=== PATIENT | female | born 1995 | race Caucasian/White ===

== ENCOUNTER 2022-03-03 12:51 | Outpatient (REF) | payer OTHER, SELFPAY ==
--- NOTE | ~2022-03-03 | CT_ITS ---
EXAMINATION: CT HEAD WITHOUT CONTRAST CLINICAL INFORMATION: Migraines. COMPARISON: None. TECHNIQUE: Contiguous axial imaging was performed from the skullbase to vertex without intravenous administration of contrast. This CT examination was performed using dose optimization techniques as appropriate, variously including the following: *Automated exposure control *Adjustment of mA and/or kV according to patient size (this includes techniques or standardized protocols for targeted exams where dose is matched to indication/reason for exam; i.e. extremities or head) *Use of iterative reconstruction technique DLP: 665 mGy-cm. FINDINGS: There is no evidence of acute intracranial hemorrhage or territorial infarction. No abnormal mass effect or midline shift is seen. Salazar to white matter differentiation is well preserved. No extra-axial fluid collections are identified. The ventricles are normal in size. There is no abnormal attenuation within the brain parenchyma. The osseous structures and soft tissues are normal. The mastoid air cells and visualized portions of the paranasal sinuses are well aerated. CT/CT head/brain wo IV con IMPRESSION: No acute intracranial pathology. Normal CT scan of the head.
== END 2022-03-03 12:52 | disposition home or self-care (01) ==
LOC: HO.CT 12:51
PROVIDERS: Visit Provider Psychiatry & Neurology Neurology
DX: G43.909 Migraine, unspecified, not intractable, without status migrainosus (principal)
CPT/HCPCS: 70450

== ENCOUNTER 2022-08-09 16:27 | Emergency (ER) | payer OTHER, SELFPAY ==
--- NOTE | ~2022-08-09 | US_ITS ---
EXAMINATION: Ultrasound OB limited. CLINICAL INDICATION: 16 weeks cannot feel baby move. Vomiting. COMPARISON: None. TECHNIQUE: Transabdominal imaging of pelvis is performed. FINDINGS: There is a single live intrauterine fetus in the cephalic position with a heart rate of 1 53 bpm an good movement. The placenta is posterior grade 1/2. The femoral length is 2.16 cm corresponding to 16 weeks 4 days. The left ovary measures 1.3 x 2.0 x 1.3 cm and appears unremarkable. The right ovary measures 1.6 x 0.8 x 1.1 cm. There is no free fluid in cul-de-sac. US/US OB limited IMPRESSION: Single live intrauterine fetus in cephalic position with normal movement and a heart rate of 1 52 bpm. Limited dating reveals ultrasound gestational age of 16 weeks 4 days.
[2022-08-09 16:34] VITALS: BP 115/76; PULSE 100; RESP 18; TEMP 36.8; O2SAT 98; BMI 30.2
--- NOTE | 2022-08-09 16:36 | ED_ITS ---
HPI - General Adult General Chief complaint: General Medical Stated complaint: vomiting, sore throat Time Seen by Provider: 08/09/22 17:54 Related Data Previous Rx's Medication Instructions Recorded nitrofurantoin 100 mg PO Q12H 7 days #14 caps 08/09/22 monohydrate/macrocrystals 100 mg capsule (Macrobid) Allergies Allergy/AdvReac Type Severity Reaction Status Date / Time No Known Allergies Allergy Unverified 01/31/20 19:00 [No Known Allergies*] [facility] Social History Social History Alcohol intake: never Physical Exam ED Vital Signs: Vital Signs - 24 hr 08/09/22 16:34 Temperature 98.3 F Pulse Rate 100 Respiratory Rate 18 Blood Pressure 115/76 Pulse Oximetry 98 Oxygen Delivery Method Room Air BMI result Body Mass Index 30.2 Course Course Course Narrative: RmE: 16 weeks patient presents to the ED for sore throat, vomitting, couging, fatigue, chills, and low grade fever. patient denies any abdominal pain, vaginal bleding. Patient states she has not felt her baby move in a couple of days. Labs/SARS/US OBGYN Medications Administered Discontinued Medications Generic Name Dose Route Start Last Admin Trade Name Freq PRN Reason Stop Dose Admin Sodium Chloride 1,000 mls @ 999 mls/hr 08/09/22 18:45 08/09/22 20:22 Ns IV 08/09/22 19:45 Infused .Q1H1M VICKI Infusion Sodium Chloride 1,000 mls @ 999 mls/hr 08/09/22 18:45 08/09/22 21:48 Ns IV 08/09/22 19:45 Infused .Q1H1M VICKI Infusion Ceftriaxone Sodium 1 gm/ 50 mls @ 100 mls/hr 08/09/22 21:17 08/09/22 21:56 Sodium Chloride IV 08/09/22 21:46 Infused ONCE ONE Infusion Ondansetron HCl 4 mg 08/09/22 18:41 08/09/22 19:27 Ondansetron Hcl 4 Mg/2 Ml Vial IVPUSH 08/09/22 18:42 4 mg ONCE ONE Administration Medical Decision Making Lab Data 08/09/22 16:55 08/09/22 16:55 Labs: Lab Results 08/09/22 08/09/2208/09/23 Range/Units 16:55 16:55 16:55 WBC 12.3 H (4.8-10.8) X10*3/uL RBC 4.45 (4.20-5.50) X10*6/uL Hgb 12.6 (12.0-16.0) g/dl Hct 37.5 (37.0-47.0) % MCV 84.3 (80.0-98.0) fL MCH 28.3 (27.0-33.0) pg MCHC 33.6 (31.0-35.0) g/dl RDW 13.4 (11.0-16.0) % Plt Count 265 (160-400) X10*3/uL MPV 10.1 (9.4-12.3) fL Immature Gran % (Auto) 0.3 (0.0-0.4) % Neut % (Auto) 81.1 H (45-73) % Lymph % (Auto) 13.3 L (20-40) % [place] % (Auto) 4.3 (2-11) % Eos % (Auto) 0.8 (0-4) % Baso % (Auto) 0.2 (0-2) % Lymph # (Auto) 1.6 (1.2-4.9) X10*3/uL [place] # (Auto) 0.5 (0.1-1.2) X10*3/uL Eos # (Auto) 0.1 (0.0-0.4) X10*3/uL Baso # (Auto) 0.0 (0.0-0.2) X10*3/uL Abs Immat Gran (auto) 0.04 H (0.00-0.03) X10*3/uL Absolute Neuts (auto) 9.9 H (2.0-8.3) x10*3/uL Absolute Nucleated RBC 0.000 (0.0-0.012) X10*3/uL Nucleated RBC % (auto) 0.0 (0.0-0.2) /100WBC PT 12.6 (10.0-13.1) SEC INR 1.1 (0.9-1.1) APTT 28.8 (26.0-36.4) SEC Sodium (135-145) mmol/L Potassium (3.3-5.1) mmol/L Chloride (96-108) mmol/L Carbon Dioxide (22-29) mmol/L Anion Gap (12-20) BUN (9-16) mg/dL Creatinine (0.5-1.4) mg/dL Estim Creat Clear Calc Estimated GFR Random Glucose (60-115) mg/dL Calcium (8.4-10.2) mg/dL Total Bilirubin (0.0-1.0) mg/dL AST (5-31) U/L ALT (0-31) U/L Alkaline Phosphatase (39-117) U/L Total Protein (6.5-8.0) g/dL Albumin (3.5-5.0) g/dL Beta HCG, Quant mIU/mL Urine Color Urine Appearance Urine pH (5.0-9.0) Ur Specific [place] (1.005-1.025) Urine Protein (Neg-Trace) mg/dL Urine Glucose (UA) (Negative) mg/dL Urine Ketones (Negative) mg/dL Urine Blood (Negative) Urine Nitrite (Negative) Ur Leukocyte Esterase (Negative) Urine RBC (0-2) /HPF Urine WBC (0-5) /HPF Ur Squamous Epith Cells (0-2) /HPF Urine Bacteria (None Seen) Hyaline Casts (0-2) /LPF Influenza Type A (PCR) NEGATIVE (Negative) Influenza Type B (PCR) NEGATIVE (Negative) RSV RNA Qual (PCR) NEGATIVE (Negative) SARS-CoV-2 RNA (RT-PCR) NEGATIVE (Negative) S. pyogenes GrpA JANET (Negative) Blood Type 08/09/22 08/09/22 08/09/22 Range/Units 16:55 16:55 16:56 WBC (4.8-10.8) X10*3/uL RBC (4.20-5.50) X10*6/uL Hgb (12.0-16.0) g/dl Hct (37.0-47.0) % MCV (80.0-98.0) fL MCH (27.0-33.0) pg MCHC (31.0-35.0) g/dl RDW (11.0-16.0) % Plt Count (160-400) X10*3/uL MPV (9.4-12.3) fL Immature Gran % (Auto) (0.0-0.4) % Neut % (Auto) (45-73) % Lymph % (Auto) (20-40) % [place] % (Auto) (2-11) % Eos % (Auto) (0-4) % Baso % (Auto) (0-2) % Lymph # (Auto) (1.2-4.9) X10*3/uL [place] # (Auto) (0.1-1.2) X10*3/uL Eos # (Auto) (0.0-0.4) X10*3/uL Baso # (Auto) (0.0-0.2) X10*3/uL Abs Immat Gran (auto) (0.00-0.03) X10*3/uL Absolute Neuts (auto) (2.0-8.3) x10*3/uL Absolute Nucleated RBC (0.0-0.012) X10*3/uL Nucleated RBC % (auto) (0.0-0.2) /100WBC PT (10.0-13.1) SEC INR (0.9-1.1) APTT (26.0-36.4) SEC Sodium 137 (135-145) mmol/L Potassium 3.4 (3.3-5.1) mmol/L Chloride 105 (96-108) mmol/L Carbon Dioxide 25 (22-29) mmol/L Anion Gap 10 L (12-20) BUN 4 L (9-16) mg/dL Creatinine 0.60 (0.5-1.4) mg/dL Estim Creat Clear Calc 118.1 Estimated GFR > 60 Random Glucose 106 (60-115) mg/dL Calcium 8.6 (8.4-10.2) mg/dL Total Bilirubin 0.2 (0.0-1.0) mg/dL AST 11 (5-31) U/L ALT 9 (0-31) U/L Alkaline Phosphatase 62 (39-117) U/L Total Protein 6.1 L (6.5-8.0) g/dL Albumin 3.5 (3.5-5.0) g/dL Beta HCG, Quant 04554 mIU/mL Urine Color Urine Appearance Urine pH (5.0-9.0) Ur Specific [place] (1.005-1.025) Urine Protein (Neg-Trace) mg/dL Urine Glucose (UA) (Negative) mg/dL Urine Ketones (Negative) mg/dL Urine Blood (Negative) Urine Nitrite (Negative) Ur Leukocyte Esterase (Negative) Urine RBC (0-2) /HPF Urine WBC (0-5) /HPF Ur Squamous Epith Cells (0-2) /HPF Urine Bacteria (None Seen) Hyaline Casts (0-2) /LPF Influenza Type A (PCR) (Negative) Influenza Type B (PCR) (Negative) RSV RNA Qual (PCR) (Negative) SARS-CoV-2 RNA (RT-PCR) (Negative) S. pyogenes GrpA JANET Negative (Negative) Blood Type A Positive 08/09/22 Range/Units 19:15 WBC (4.8-10.8) X10*3/uL RBC (4.20-5.50) X10*6/uL Hgb (12.0-16.0) g/dl Hct (37.0-47.0) % MCV (80.0-98.0) fL MCH (27.0-33.0) pg MCHC (31.0-35.0) g/dl RDW (11.0-16.0) % Plt Count (160-400) X10*3/uL MPV (9.4-12.3) fL Immature Gran % (Auto) (0.0-0.4) % Neut % (Auto) (45-73) % Lymph % (Auto) (20-40) % [place] % (Auto) (2-11) % Eos % (Auto) (0-4) % Baso % (Auto) (0-2) % Lymph # (Auto) (1.2-4.9) X10*3/uL [place] # (Auto) (0.1-1.2) X10*3/uL Eos # (Auto) (0.0-0.4) X10*3/uL Baso # (Auto) (0.0-0.2) X10*3/uL Abs Immat Gran (auto) (0.00-0.03) X10*3/uL Absolute Neuts (auto) (2.0-8.3) x10*3/uL Absolute Nucleated RBC (0.0-0.012) X10*3/uL Nucleated RBC % (auto) (0.0-0.2) /100WBC PT (10.0-13.1) SEC INR (0.9-1.1) APTT (26.0-36.4) SEC Sodium (135-145) mmol/L Potassium (3.3-5.1) mmol/L Chloride (96-108) mmol/L Carbon Dioxide (22-29) mmol/L Anion Gap (12-20) BUN (9-16) mg/dL Creatinine (0.5-1.4) mg/dL Estim Creat Clear Calc Estimated GFR Random Glucose (60-115) mg/dL Calcium (8.4-10.2) mg/dL Total Bilirubin (0.0-1.0) mg/dL AST (5-31) U/L ALT (0-31) U/L Alkaline Phosphatase (39-117) U/L Total Protein (6.5-8.0) g/dL Albumin (3.5-5.0) g/dL Beta HCG, Quant mIU/mL Urine Color Yellow Urine Appearance Clear Urine pH 6.5 (5.0-9.0) Ur Specific [place] 1.015 (1.005-1.025) Urine Protein Trace (Neg-Trace) mg/dL Urine Glucose (UA) Negative (Negative) mg/dL Urine Ketones 80 (Negative) mg/dL Urine Blood Negative (Negative) Urine Nitrite Negative (Negative) Ur Leukocyte Esterase Moderate (2+) H (Negative) Urine RBC 0-2 (0-2) /HPF Urine WBC 21-50 H (0-5) /HPF Ur Squamous Epith Cells 6-10 (0-2) /HPF Urine Bacteria 1+ (None Seen) Hyaline Casts 0-2 (0-2) /LPF Influenza Type A (PCR) (Negative) Influenza Type B (PCR) (Negative) RSV RNA Qual (PCR) (Negative) SARS-CoV-2 RNA (RT-PCR) (Negative) S. pyogenes GrpA JANET (Negative) Blood Type Discharge Plan Discharge Clinical Impression: Nausea & vomiting, , Urinary tract infection Patient Disposition: Home, Self-Care Instructions: (ED), Acute Nausea and Vomiting (ED), Urinary Tract Infection in (ED) Prescriptions: New nitrofurantoin monohyd/m-cryst [Macrobid] 100 mg capsule 100 mg PO Q12H 7 Days Qty: 14 0RF Rx Instructions: must administer with a meal/food Referrals: Areli Farias MD [Primary Care Provider] - (Please follow-up with your OBGYN in 2-3 days. Finish all your antibiotics) Interventions: ED Discharge Assessment Last Done: 08/09/22 21:55 Discharge Date/Time: 08/09/22 21:55
--- OUTSIDE RECORDS SUMMARY | 2022-08-09 17:00 | XMS_ITS | Continuity of Care Document ---
Author Name Unknown Organization [facility] al Address [address] [place] [address]- Care Team Providers Care Environmental Services Associate Name Role Phone Not on Staff, PCP Primary Care Physician Unavail able Encounter [facility] Date(s): 10/10/19 - 10/11/[address] [address]- [facility] Discharge Disposition: A-D/C Home Attending Physician: Sohail Zamora DO Admitting Physician: Sohail Zamora DO Referring Physician: Not on Staff, Referring MD Allergies, Adverse Reactions, Alerts Substance Reaction Severity Status NKA Active Medications Lexapro 10 mg oral tablet 1 tablet = 10 mg, By Mouth, Daily, # 30 tablet, 0 Refills, Maintenance, 09/04/19 11:17:00 EDT, Tablet Start Date: 09/04/19 Status: Ordered RisperDAL 1 mg oral tablet 1 mg, 1, tablet, By Mouth, Daily at bedtime, # 30 tablet, Refills 0, Maintenance, 09/04/19 11:17:00EDT Start Date: 09/04/19 Status: Ordered risperiDONE 0.25 mg oral tablet 0.25 mg, 1, tablet, By Mouth, 2 times a day, # 180 tablet, Refills 0, Maintenance, 09/04/19 11:17:00 EDT Start Date: 09/04/19 Status: Ordered Vital Signs Most recent to oldest [Reference Range]: 1 2 3 Height 150 cm (10/11/19 11:46 AM) 150 cm (10/10/19 10:57 PM) 150 cm (10/10/19 10:56 PM) Weight 71.3 kg (10/11/19 11:46 AM) 71.3 kg (10/10/19 10:57 PM) 71.3 kg (10/10/19 10:56 PM) Oxygen Saturation [94-100 %] 100 % (10/11/19 10:14 AM) 99 % (10/10/19 10:38 PM) Pulse Rate [55-90 bpm] 95 bpm *H* (10/11/19 10:14 AM) 81 bpm (10/10/19 10:38 PM) Body Mass Index [18.5-24.99] 31.69 *>HHI* (10/10/19 10:56 PM) Blood Pressure [90-138/55-84 mm Hg] 117/66mm Hg (10/11/19 10:14 AM) 120/74mm Hg (10/10/19 10:38 PM) Respiratory Rate [16-30 br/min] 16 br/min (10/11/19 10:14 AM) 16 br/min (10/10/19 10:38 PM) Temperature [96.8-100.4 DegF] 98.2 DegF (10/10/19 10:38 PM) Mode of Delivery (Oxygen) Room air (10/11/19 10:14 AM) Blood pressure sites Arm, left (10/11/19 10:14 AM) Arm, left (10/10/19 10:38 PM) Temperature Route Tympanic (10/10/19 10:38 PM) Dry Weight 71.3 kg (10/11/19 11:46 AM) 71.3 kg (10/10/19 10:57 PM) Social History Social History Type Response Smoking Status Never (less than 100 in lifetime) entered on: 09/04/19 Sex
--- OUTSIDE RECORDS SUMMARY | 2022-08-09 17:00 | XMS_ITS | Continuity of Care Document ---
Author Name Unknown Organization [facility] Address [address] [place] [address]- Care Team Providers Care Flour Broker Name Role Phone Not on Staff, PCP Primary Care Physician Unavail able Encounter [facility] Date(s): 09/04/19 - 09/04/[address] [address]- [facility] Discharge Disposition: A-D/C Home Attending Physician: Sohail [...] tablet 1 mg, 1, tablet, By Mouth, Daily, # 30 tablet, Refills 0, Maintenance, 09/04/19 11:17:00 EDT Start Date: 09/04/19 Status: Ordered risperiDONE 0.25 mg oral tablet 0.25 mg, 1, tablet, By Mouth, 2 times a day, # 180 tablet, Refills 0, Maintenance, 09/04/19 11:17:00 EDT Start Date: 09/04/19 Status: Ordered Vital Signs Most recent to oldest [Reference Range]: 1 Height 150 cm (09/04/19 11:16 AM) Weight 69.2 kg (09/04/19 11:16 AM) Oxygen Saturation [94-100 %] 100 % (09/04/19 11:16 AM) Pulse Rate [55-90 bpm] 79 bpm (09/04/19 11:16 AM) Blood Pressure [90-138/55-84 mm Hg] 127/ 78mm Hg (09/04/19 11:16 AM) Respiratory Rate [16-30 br/min] 16 br/mi n (09/04/19 11:16 AM) Temperature [96.8-100.4 DegF] 98.0 DegF (09/04/19 11:16 AM) Mode of Delivery (Oxygen) Room air (09/04/19 11:16 AM) Dry Weight 69.2 kg (09/04/19 11:16 AM) Weight Obtained Via Standing scale (09/04/19 11:16 AM) Dry Weight Obtained Via Standing scale (09/04/19 11:16 AM) Social History Social History Type Response Smoking Status Never (less than 100 in lifetime) entered on: 09/04/19 Sex
[2022-08-09 17:04] LABS: MANUAL DIFF FLAG NO
[2022-08-09 17:11] LABS: Basophils Percent Auto 0.2 % (0-2); Eosinophils Absolute Auto 0.1 X10*3/uL (0.0-0.4); Eosinophils Percent Auto 0.8 % (0-4); Hematocrit 37.5 % (37.0-47.0); Hemoglobin 12.6 g/dl (12.0-16.0); Imm Gran Abs Auto 0.04 X10*3/uL (0.00-0.03); Imm Gran Pct Auto 0.3 % (0.0-0.4); Lymphocytes Absolute Auto 1.6 X10*3/uL (1.2-4.9); Lymphocytes Percent Auto 13.3 % (20-40); Mean Corpuscular HGB Conc 33.6 g/dl (31.0-35.0); Mean Corpuscular Hemoglobin 28.3 pg (27.0-33.0); Mean Corpuscular Volume 84.3 fL (80.0-98.0); Mean Platelet Volume 10.1 fL (9.4-12.3); Monocytes Absolute Auto 0.5 X10*3/uL (0.1-1.2); Monocytes Percent Auto 4.3 % (2-11); Neutrophils Absolute Auto 9.9 x10*3/uL (2.0-8.3); Neutrophils Percent Auto 81.1 % (45-73); Platelet Count 265 X10*3/uL (160-400); Red Blood Count 4.45 X10*6/uL (4.20-5.50); Red Cell Distribution Width 13.4 % (11.0-16.0); White Blood Count 12.3 X10*3/uL (4.8-10.8)
[2022-08-09 17:16] LABS: INTERNATIONAL NORM RATIO 1.1 (0.9-1.1); Prothrombin Time 12.6 SEC (10.0-13.1)
[2022-08-09 17:18] LABS: Partial Thromboplastin Time 28.8 SEC (26.0-36.4)
[2022-08-09 17:28] LABS: IDNOW Serial# 08D9AD1C; Strep A Nucleic Acid Negative (Negative)
[2022-08-09 17:41] LABS: Alanine Aminotransferase 9 U/L (0-31); Albumin Level 3.5 g/dL (3.5-5.0); Alkaline Phosphatase 62 U/L (39-117); Anion Gap 10 (12-20); Aspartate Amino Transferase 11 U/L (5-31); Bilirubin Total 0.2 mg/dL (0.0-1.0); Blood Urea Nitrogen 4 mg/dL (9-16); Calcium 8.6 mg/dL (8.4-10.2); Carbon Dioxide 25 mmol/L (22-29); Chloride 105 mmol/L (96-108); Creatinine Clr Calc Pharmacy 118.1; Estimated Glomerular Filt Rate > 60; Glucose Random 106 mg/dL (60-115); Potassium 3.4 mmol/L (3.3-5.1); Sodium 137 mmol/L (135-145); Total Protein 6.1 g/dL (6.5-8.0)
[2022-08-09 17:52] LABS: Influenza A PCR NEGATIVE (Negative); Influenza B PCR NEGATIVE (Negative); Resp Syncy Virus RNA Qual PCR NEGATIVE (Negative); SARS COV2 PCR INHOUSE NEGATIVE (Negative)
--- NOTE | 2022-08-09 18:44 | ED.URI ---
HPI - URI/Sore Throat General Chief Complaint: General Medical Stated Complaint: vomiting, sore throat Time Seen by Provider: 08/09/22 17:54 History of Present Illness HPI Narrative: Patient is a 27-year-old female positive coughing congestion upper respiratory symptoms. Positive sore throat. Patient is approximately 16 weeks . Had a previous ultrasound done at [facility]. It shows an intrauterine . There is no abdominal pain. There is no vaginal discharge. Patient feels very weak and tired was unable to keep down fluids since presents emergency department for further evaluation. Related Data Previous Rx's Medication Instructions Recorded nitrofurantoin 100 mg PO Q12H 7 days #14 caps 08/09/22 monohydrate/macrocrystals 100 mg capsule (Macrobid) Allergies Allergy/AdvReac Type Severity Reaction Status Date / Time No Known Allergies Allergy Unverified 01/31/20 19:00 [No Known Allergies*] Review of Systems Review of Systems: Positive nausea vomiting positive decreased p.o. intake Yes all other systems are reviewed and are negative [facility] Past Medical History Attestation statement: The following information was validated with the patient. Social History Social History Alcohol intake: never Smoked in Last 30 Days: No Use of substances other than those prescribed or required for medical reasons: No Advance Directives: No Advance Directives Information Provided: No Patient : Yes Physical Exam Vital Signs: Vital Signs: Last Vital Signs Temp 98.1 F 08/09/22 18:55 Pulse 92 08/09/22 18:55 Resp 18 08/09/22 18:55 BP 108/59 L 08/09/22 18:55 Pulse Ox 99 08/09/22 18:55 O2 Del Method Room Air 08/09/22 18:55 BMI result Body Mass Index 30.2 Appearance: Alert. Oriented X3. No acute distress. Eyes: Pupils equal, round and reactive to light. ENT: Pharynx normal. Neck: Normal inspection. Neck supple. No lymph nodes noted. No crepitus CVS: Normal heart rate and rhythm. Pulses normal. Normal S1 and S2 Respiratory: No respiratory distress. Breath sounds normal. No Wheezing. No rales Abdomen: Gravid uterus nontender. No rigidity. No distention. good BS x4 Skin: Skin warm and dry. Normal skin color. Normal skin turgor. Extremities: No lower extremity edema. Neurovascular intact to all extremities. No Lacerations. No Rash Neuro: Oriented X 3. No motor deficit. No sensory deficit. Moving all extermities. No slurred speech Medications Administered Generic Name Dose Route Start Last Admin Trade Name Freq PRN Reason Stop Dose Admin Ceftriaxone Sodium 1 gm/ 50 mls @ 100 mls/hr 08/09/22 21:17 08/09/22 21:25 Sodium Chloride IV 08/09/22 21:46 100 mls/hr ONCE ONE Administration Discontinued Medications Generic Name Dose Route Start Last Admin Trade Name Freq PRN Reason Stop Dose Admin Sodium Chloride 1,000 mls @ 999 mls/hr 08/09/22 18:45 08/09/22 20:22 Ns IV 08/09/22 19:45 Infused .Q1H1M VICKI Infusion Sodium Chloride 1,000 mls @ 999 mls/hr 08/09/22 18:45 08/09/22 20:22 Ns IV 08/09/22 19:45 999 mls/hr .Q1H1M VICKI Administration Ondansetron HCl 4 mg 08/09/22 18:41 08/09/22 19:27 Ondansetron Hcl 4 Mg/2 Ml Vial IVPUSH 08/09/22 18:42 4 mg ONCE ONE Administration Medical Decision Making Medical Decision Making [facility] Narrative: Patient is approximately 16 weeks . Ultrasound confirms patient states. Positive intrauterine with heartbeat. No evidence for ectopic. Patient had nausea vomiting. Urine showed a possible UTI. A dose of Rocephin was given will also give Macrobid on an outpatient basis. Patient given 2 L of fluid for upper respiratory symptoms nausea vomiting. Symptomatic leaf feel much improved. A dose of Zofran was given for nausea. Able to tolerate fluid now. Will discharge patient home. Patient's COVID RSV flu all negative. Differential Diagnosis Hyper emesis, upper respiratory infection, UTI, related issues Lab Data [facility] Lab Attestation statement: I reviewed the patient's lab results. 08/09/22 16:55 08/09/22 16:55 Labs: Lab Results 08/09/22 08/09/22 08/09/22 Range/Units 16:55 16:55 16:55 WBC 12.3 H (4.8-10.8) X10*3/uL RBC 4.45 (4.20-5.50) X10*6/uL Hgb 12.6 (12.0-16.0) g/dl Hct 37.5 (37.0-47.0) % MCV 84.3 (80.0-98.0) fL MCH 28.3 (27.0-33.0) pg MCHC 33.6 (31.0-35.0) g/dl RDW 13.4 (11.0-16.0) % Plt Count 265 (160-400) X10*3/uL MPV 10.1 (9.4-12.3) fL Immature Gran % (Auto) 0.3 (0.0-0.4) % Neut % (Auto) 81.1 H (45-73) % Lymph % (Auto) 13.3 L (20-40) % [place] % (Auto) 4.3 (2-11) % Eos % (Auto) 0.8 (0-4) % Baso % (Auto) 0.2 (0-2) % Lymph # (Auto) 1.6 (1.2-4.9) X10*3/uL [place] # (Auto) 0.5 (0.1-1.2) X10*3/uL Eos # (Auto) 0.1 (0.0-0.4) X10*3/uL Baso # (Auto) 0.0 (0.0-0.2) X10*3/uL Abs Immat Gran (auto) 0.04 H (0.00-0.03) X10*3/uL Absolute Neuts (auto) 9.9 H (2.0-8.3) x10*3/uL Absolute Nucleated RBC 0.000 (0.0-0.012) X10*3/uL Nucleated RBC % (auto) 0.0 (0.0-0.2) /100WBC PT 12.6 (10.0-13.1) SEC INR 1.1 (0.9-1.1) APTT 28.8 (26.0-36.4) SEC Sodium (135-145) mmol/L Potassium (3.3-5.1) mmol/L Chloride (96-108) mmol/L Carbon Dioxide (22-29) mmol/L Anion Gap (12-20) BUN (9-16) mg/dL Creatinine (0.5-1.4) mg/dL Estim Creat Clear Calc Estimated GFR Random Glucose (60-115) mg/dL Calcium (8.4-10.2) mg/dL Total Bilirubin (0.0-1.0) mg/dL AST (5-31) U/L ALT (0-31) U/L Alkaline Phosphatase (39-117) U/L Total Protein (6.5-8.0) g/dL Albumin (3.5-5.0) g/dL Beta HCG, Quant mIU/mL Urine Color Urine Appearance Urine pH (5.0-9.0) Ur Specific [place] (1.005-1.025) Urine Protein (Neg-Trace) mg/dL Urine Glucose (UA) (Negative) mg/dL Urine Ketones (Negative) mg/dL Urine Blood (Negative) Urine Nitrite (Negative) Ur Leukocyte Esterase (Negative) Urine RBC (0-2) /HPF Urine WBC (0-5) /HPF Ur Squamous Epith Cells (0-2) /HPF Urine Bacteria (None Seen) Hyaline Casts (0-2) /LPF Influenza Type A (PCR) NEGATIVE (Negative) Influenza Type B (PCR) NEGATIVE (Negative) RSV RNA Qual (PCR) NEGATIVE (Negative) SARS-CoV-2 RNA (RT-PCR) NEGATIVE (Negative) S. pyogenes GrpA JANET (Negative) Blood Type 08/09/22 08/09/22 08/09/22 Range/Units 16:55 16:55 16:56 WBC (4.8-10.8) X10*3/uL RBC (4.20-5.50) X10*6/uL Hgb (12.0-16.0) g/dl Hct (37.0-47.0) % MCV (80.0-98.0) fL MCH (27.0-33.0) pg MCHC (31.0-35.0) g/dl RDW (11.0-16.0) % Plt Count (160-400) X10*3/uL MPV (9.4-12.3) fL Immature Gran % (Auto) (0.0-0.4) % Neut % (Auto) (45-73) % Lymph % (Auto) (20-40) % [place] % (Auto) (2-11) % Eos % (Auto) (0-4) % Baso % (Auto) (0-2) % Lymph # (Auto) (1.2-4.9) X10*3/uL [place] # (Auto) (0.1-1.2) X10*3/uL Eos # (Auto) (0.0-0.4) X10*3/uL Baso # (Auto) (0.0-0.2) X10*3/uL Abs Immat Gran (auto) (0.00-0.03) X10*3/uL Absolute Neuts (auto) (2.0-8.3) x10*3/uL Absolute Nucleated RBC (0.0-0.012) X10*3/uL Nucleated RBC % (auto) (0.0-0.2) /100WBC PT (10.0-13.1) SEC INR (0.9-1.1) APTT (26.0-36.4) SEC Sodium 137 (135-145) mmol/L Potassium 3.4 (3.3-5.1) mmol/L Chloride 105 (96-108) mmol/L Carbon Dioxide 25 (22-29) mmol/L Anion Gap 10 L (12-20) BUN 4 L (9-16) mg/dL Creatinine 0.60 (0.5-1.4) mg/dL Estim Creat Clear Calc 118.1 Estimated GFR > 60 Random Glucose 106 (60-115) mg/dL Calcium 8.6 (8.4-10.2) mg/dL Total Bilirubin 0.2 (0.0-1.0) mg/dL AST 11 (5-31) U/L ALT 9 (0-31) U/L Alkaline Phosphatase 62 (39-117) U/L Total Protein 6.1 L (6.5-8.0) g/dL Albumin 3.5 (3.5-5.0) g/dL Beta HCG, Quant 61472 mIU/mL Urine Color Urine Appearance Urine pH (5.0-9.0) Ur Specific [place] (1.005-1.025) Urine Protein (Neg-Trace) mg/dL Urine Glucose (UA) (Negative) mg/dL Urine Ketones (Negative) mg/dL Urine Blood (Negative) Urine Nitrite (Negative) Ur Leukocyte Esterase (Negative) Urine RBC (0-2) /HPF Urine WBC (0-5) /HPF Ur Squamous Epith Cells (0-2) /HPF Urine Bacteria (None Seen) Hyaline Casts (0-2) /LPF Influenza Type A (PCR) (Negative) Influenza Type B (PCR) (Negative) RSV RNA Qual (PCR) (Negative) SARS-CoV-2 RNA (RT-PCR) (Negative) S. pyogenes GrpA JANET Negative (Negative) Blood Type A Positive 08/09/22 Range/Units 19:15 WBC (4.8-10.8) X10*3/uL RBC (4.20-5.50) X10*6/uL Hgb (12.0-16.0) g/dl Hct (37.0-47.0) % MCV (80.0-98.0) fL MCH (27.0-33.0) pg MCHC (31.0-35.0) g/dl RDW (11.0-16.0) % Plt Count (160-400) X10*3/uL MPV (9.4-12.3) fL Immature Gran % (Auto) (0.0-0.4) % Neut % (Auto) (45-73) % Lymph % (Auto) (20-40) % [place] % (Auto) (2-11) % Eos % (Auto) (0-4) % Baso % (Auto) (0-2) % Lymph # (Auto) (1.2-4.9) X10*3/uL [place] # (Auto) (0.1-1.2) X10*3/uL Eos # (Auto) (0.0-0.4) X10*3/uL Baso # (Auto) (0.0-0.2) X10*3/uL Abs Immat Gran (auto) (0.00-0.03) X10*3/uL Absolute Neuts (auto) (2.0-8.3) x10*3/uL Absolute Nucleated RBC (0.0-0.012) X10*3/uL Nucleated RBC % (auto) (0.0-0.2) /100WBC PT (10.0-13.1) SEC INR (0.9-1.1) APTT (26.0-36.4) SEC Sodium (135-145) mmol/L Potassium (3.3-5.1) mmol/L Chloride (96-108) mmol/L Carbon Dioxide (22-29) mmol/L Anion Gap (12-20) BUN (9-16) mg/dL Creatinine (0.5-1.4) mg/dL Estim Creat Clear Calc Estimated GFR Random Glucose (60-115) mg/dL Calcium (8.4-10.2) mg/dL Total Bilirubin (0.0-1.0) mg/dL AST (5-31) U/L ALT (0-31) U/L Alkaline Phosphatase (39-117) U/L Total Protein (6.5-8.0) g/dL Albumin (3.5-5.0) g/dL Beta HCG, Quant mIU/mL Urine Color Yellow Urine Appearance Clear Urine pH 6.5 (5.0-9.0) Ur Specific [place] 1.015 (1.005-1.025) Urine Protein Trace (Neg-Trace) mg/dL Urine Glucose (UA) Negative (Negative) mg/dL Urine Ketones 80 (Negative) mg/dL Urine Blood Negative (Negative) Urine Nitrite Negative (Negative) Ur Leukocyte Esterase Moderate (2+) H (Negative) Urine RBC 0-2 (0-2) /HPF Urine WBC 21-50 H (0-5) /HPF Ur Squamous Epith Cells 6-10 (0-2) /HPF Urine Bacteria 1+ (None Seen) Hyaline Casts 0-2 (0-2) /LPF Influenza Type A (PCR) (Negative) Influenza Type B (PCR) (Negative) RSV RNA Qual (PCR) (Negative) SARS-CoV-2 RNA (RT-PCR) (Negative) S. pyogenes GrpA JANET (Negative) Blood Type Independent Historian Clinical information obtained from an independent historian. History obtained from or confirmed by: Friend Prescription Management I considered prescription management with: Antibiotic Discharge Plan Discharge Clinical Impression: Nausea & vomiting, , Urinary tract infection Patient Disposition: Home, Self-Care Instructions: (ED), Acute Nausea and Vomiting (ED), Urinary Tract Infection in (ED) Prescriptions: New nitrofurantoin monohyd/m-cryst [Macrobid] 100 mg capsule 100 mg PO Q12H 7 Days Qty: 14 0RF Rx Instructions: must administer with a meal/food Referrals: Areli Farias MD [Primary Care Provider] - (Please follow-up with your OBGYN in 2-3 days. Finish all your antibiotics)
[2022-08-09 18:55] VITALS: BP 108/59; PULSE 92; RESP 18; TEMP 36.7; O2SAT 99
[2022-08-09 19:22] LABS: Appearance Urine Clear; Color Urine Yellow; Glucose Urine UA Negative (Negative); Leukocyte Esterase Urine Moderate (2+) (Negative); Nitrite Urine Negative (Negative); PH 6.5 (5.0-9.0); Specific Gravity - Urine 1.015 (1.005-1.025); UMIC TRIGGER UACC YES; Urine Blood Negative (Negative); Urine Ketones 80 mg/dL (Negative); Urine Protein Trace mg/dL (Neg-Trace)
[2022-08-09] MEDS: 0.9 % Sodium Chloride 1,000 ML 999 ML IV ×2 (19:26→20:22)
[2022-08-09 19:27] LABS: Bacteria Urine 1+ (None Seen); Hyaline Casts Urine 0-2 /LPF (0-2); RBC Urine 0-2 /HPF (0-2); UACC Culture Trigger YES; WBC Urine 21-50 /HPF (0-5)
[2022-08-09] MEDS: ondansetron HCL 4 MG/2 ML VIAL IVPUSH (19:27)
[2022-08-09] MEDS: cefTRIAXone sodium 1 GM in 0.9 % Sodium Chloride 50 ML IV (21:25)
== END 2022-08-09 21:55 | disposition home or self-care (01) ==
PROVIDERS: Physician Assistant; Emergency Provider Emergency Medicine Emergency Medical Services; PCP Internal Medicine
DX: O23.42 Unspecified infection of urinary tract in pregnancy, second trimester (principal); N39.0 Urinary tract infection, site not specified; Z3A.16 16 weeks gestation of pregnancy; Z79.899 Other long term (current) drug therapy; Z20.822 Contact with and (suspected) exposure to COVID-19; Z20.828 Contact with and (suspected) exposure to other viral communicable diseases
CPT/HCPCS: 0241U; 36415; 76815; 80053; 81001; 84702; 85025; 85610; 85730; 86900; 86901; 87086; 87651; 96361; 96374; 96375; 99284; J0696; J2405

== ENCOUNTER 2022-09-07 12:15 | Outpatient (RCR) | payer OTHER, SELFPAY ==
[2022-08-27 11:24] VITALS: BP 100/62; PULSE 76; TEMP 36.5
--- NOTE | 2022-08-27 12:02 | PC.ADMIT ---
Patient is a 27 year old single female who was referred to [facility] by her therapist d/t increased depression with passive SI and anxiety. Patient is 18 weeks with her second child and is not with the father of her baby. She has little supports, she did identify a friend who is supportive. Patient has a history of psychosis with her first child and as a result that child is with their father. Patient reports history of inpatient level of care at [facility] on July 02-2022 d/t severe depression with SI. She reports she is unable to work d/t mental health and severe depression. Previously had been working 2 jobs up until 2 months ago. Struggling with finances as she is currently living off her savings and is taking money out of her skilled nursing plan. Patient stated she does not want to end up like her mother thus she is at [facility] to take care of her mental health. She reports isolating in bed. Patient reports passive thoughts at times of not wanting to wake up or she is not good enough, however denied plan or intent to kill of harm herself. Patient given a copy of her safety plan if needed and I reviewed the plan with her. She reports history of self harm by cutting her upper legs, stated she has not done this in two years. Denied any history of substance use in the past or currently. Patient has a OBGYN she is seeing at [facility] in [place] and stated she is taking her medications as prescribed including vitamin. Patient is alert and oriented x4. Calm and cooperative. Presents with depressed mood and affect. Medications reconciled with patient and patients' pharmacy. Patient reports recently started Zoloft and was taken off Escitalopram.
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
--- NOTE | 2022-09-01 11:23 | HO.PHPPROGNO ---
Subjective Subjective Date of Service: 09/01/22 Reason For Visit: depression Medical Problems Affecting Mental Status: No Interim History: Continues with depressed, anxious mood and affect. No SI, feels safe. Poor sleep. Asking for medication increase. Medication Compliance: Yes Side effects from medications: No Attending Groups: Yes Review of Systems Acute medical concerns: Yes Current , Nineteen weeks gestation. Medical Review of Systems: unchanged Review of Systems Review of Systems Yes all other systems are reviewed and are negative Constitutional: Reports no additional constitutional complaints Mental Status Exam Mental Status Exam Patient Appearance: Well Grooomed Patient Orientation: Person, Place, Time and Situation Level of Consciousness: Appropriate Patient Behavior: Appropriate, Cooperative and Good Eye Contact Mood Description: Depressed and Anxious Affect Description: Depressed and Anxious Patient Cognition Impaired: No Ability to Follow Directions: Excellent Speech Pattern: Clear Memory Description: Intact Hallucinations: None Delusions: Not Present Thought Process: Intact Thought Content: positive for Obsessional Thoughts ( like something bad is going to happen ) and positive for Preoccupation Depressive Symptoms: Increased Anxiety, Difficulty Sleeping, Changes in Appetite, Loss of Int. in Activity, Isolating-Friends/Family, Unhappiness, Increased Fatigue, Loss of Energy and Difficulty Concentrating Judgement: Fair Assessment & Plan Assessment & Plan (1) Bipolar 2 disorder, major depressive episode: Status: Acute Code(s): F31.81 - Bipolar II disorder Assessment and Plan: Depressed, anxious. No SI, feels safe. Poor sleep. Excessive worry, states that sometimes she thinks her son will be taken away by her ex, even though she knows this is not true. Reports trying various medications since 2018. States that some medications would work for a while regarding her mood stabilization, but were not consistent. States that she did not want to come in today, wanted to stay in bed, and that she feels tired. Discussed symptoms of her bipolar 2 disorder, history of what happened after her 1st child was born. She states that she has never been fully manic, but has had hypomanic episodes lasting up to several days at a time. After delivery of her 1st child, she became extremely depressed, was self injurious behavior, was flying into fits of rage. During that time she had a plan for suicide, and that she heard voices to harm her son. She stated that she wanted to shake him while he was crying in the night. She does not describe this as a full psychotic episode, but more as a reaction to being overtired, depressed and exhausted, feeling overwhelmed. She states that she realized at the time that she was having these, and she did not want to do this. At that time partner took the child, and has had custody of him ever since. She states that her mother had untreated bipolar disorder, which led to psychosis. Her brother also carries a diagnosis of schizophrenia. She expresses fear regarding this in her own life, and wishes to prevent this from happening, by managing her mental illness now rather than leaving it untreated. She is finding the groups helpful here, also finds the structure of the day to be helpful at this time. She has little community supports. We discussed various medication options. She has taken both quetiapine and risperidone in the past, as well as lamotrigine, all with good effect. Discussed adding low-dose quetiapine. Will speak with OBGYN, outpatient psychiatrist prior to adding atypical antipsychotic for mood stabilization. Also discussed increasing current sertraline dose. Reviewed risks associated with this, as possibility of activating a hypomanic episode. Reviewed symptoms such as decreased sleep, rapid speech, increased energy. Patient was advised if she begins to feel any of these symptoms or at any time becomes unsafe, to stop the increased dose and to call crisis. She was in agreement. Discussed increasing dose slowly, will go from 50 mg to 75 mg daily. Call has been placed to her outpatient psychiatrist, as well as her outpatient supervisor pairing and inspecting office. (2) Complex posttraumatic stress disorder: Status: Acute Code(s): F43.10 - Post-traumatic stress disorder, unspecified Plan 1. Continue with current [facility] plan of care. 2. Increase sertraline to 75 mg daily. Patient has supply at home. 3. Spoke with OBGYN office [phone]). They would prefer that patient not be started with quetiapine, due to potential s/e. Will return call to them to discuss other options. 4. Awaiting call back from outpatient psychiatrist office. 5. Follow-up as per protocol. 6. Patient is also been provided with [employer] [facility] consult service [phone], and informed that she can call them to ask for a consult for a 2nd opinion if she so chooses. She was also encouraged to go to their website, as they have multiple resources available. She had been given printed materials regarding this during last encounter. Patient educated on: diagnosis, medication risk/benefits and therapeutic strategies Informed Consent: understands Reason for contiued partial hosp. stay Substantial Risk for: harm to self, inability to function, rapid decompensation and med/psych decompensation Certification I certify that partial hospital treatment is medically necessary due to the symptoms and problems resulting from the patient's mental illness and the failure to treat the patient at the partial hospital level of care would likely result in the patient requiring inpatient psychiatric care which could not be prevented at a less intensive level of care. Total time managing care of this patient today __25__ minutes. Discharge Plan Discharge Attending provider: Thuan Marie Medications: No Action sertraline 50 mg tablet 50 mg PO QAM Multi-DHA(with vit K) 27 mg iron-800 mcg-260 mg capsule 1 cap PO DAILY
--- NOTE | 2022-09-07 10:08 | P.PNPSP_ITS ---
Subjective Subjective Date of Service: 09/07/22 Reason For Visit: depression Medical Problems Affecting Mental Status: No Interim History: Finds the increased sertraline dose helping manage depression somewhat better, continues with mood instability however. No SI, feels safe. Received phone call from her brother she is working to set boundaries with him. Would like to be placed on a mood stabilizer. Struggling with car this broke down, financial concerns regarding rent, food etc.. Medication Compliance: Yes Side effects from medications: No Attending Groups: Yes Review of Systems Acute medical concerns: No Medical Review of Systems: unchanged Review of Systems Review of Systems 20 weeks . Yes all other systems are reviewed and are negative Constitutional: Reports no additional constitutional complaints Mental Status Exam Mental Status Exam Patient Appearance: Appropriate Patient Orientation: Person, Place, Time and Situation Level of Consciousness: Appropriate Patient Behavior: Appropriate, Cooperative and Good Eye Contact Mood Description: Depressed (improving), Anxious (less) and Labile Affect Description: Depressed (less) and Anxious (less) Patient Cognition Impaired: No Ability to Follow Directions: Excellent Speech Pattern: Clear Memory Description: Intact Hallucinations: None Delusions: Not Present Thought Process: Intact Thought Content: positive for Intact Depressive Symptoms: Increased Anxiety, Difficulty Sleeping, Changes in Appetite (improving), Loss of Int. in Activity, Increased Fatigue, Loss of Energy and Difficulty Concentrating Judgement: Fair Assessment & Plan Assessment & Plan (1) Bipolar 2 disorder, major depressive episode: Status: Acute Code(s): F31.81 - Bipolar II disorder Assessment and Plan: Finds the increased sertraline dose helping manage depression somewhat better, continues with mood instability however. No SI, feels safe. Received phone call from her brother she is working to set boundaries with him. States that she struggles with this at times. She plans to not allow him to come back and retrieve his belongings without having somebody from the [place] police department present, as she does not feel completely safe with him there. Would like to be placed on a mood stabilizer. We discussed options available. This greeting card writer discussed adding lamotrigine or latuda. Call placed to her OBGYN office. Provider called back, stating that they would prefer lamotrigine, due to . Patient was agreeable to starting this, as she was taking this prior to , and it had helped with mood stabilization. Struggling with car this broke down this morning, financial concerns regarding rent, food etc.. Discussed resources available in community. Patient is working diligently to obtain disability, also on other resources. (2) Complex posttraumatic stress disorder: Status: Acute Code(s): F43.10 - Post-traumatic stress disorder, unspecified Plan 1. Continue with current [facility] plan of care. 2. Continue with sertraline 75 mg daily. 3. Start lamotrigine 25 mg x 14 days, to be followed by 14 days lamotrigine 50 mg. 4. Follow-up as per protocol. Patient educated on: diagnosis, medication risk/benefits and therapeutic strategies Informed Consent: understands Reason for contiued partial hosp. stay Substantial Risk for: harm to self, inability to function, rapid decompensation and med/psych decompensation Certification I certify that partial hospital treatment is medically necessary due to the symptoms and problems resulting from the patient's mental illness and the failure to treat the patient at the partial hospital level of care would likely result in the patient requiring inpatient psychiatric care which could not be prevented at a less intensive level of care. Total time managing care of this patient today __20__ minutes. Discharge Plan Discharge Attending provider: Thuan Marie Medications: New sertraline 50 mg tablet 75 mg PO DAILY Qty: 45 0RF lamotrigine 25 mg tablet See Rx Instructions .ROUTE .COMPLEX 28 Days Qty: 42 0RF Rx Instructions: Take one tab (25 mg) orally for 14 days, THEN take 2 tabs (50mg) for 14 days. Discontinued sertraline 50 mg tablet 50 mg PO QAM No Action Multi-DHA(with vit K) 27 mg iron-800 mcg-260 mg capsule 1 cap PO DAILY
== END 2022-09-07 23:59 | disposition home or self-care (01) ==
LOC: HO.PHPA 12:15
PROVIDERS: Visit Provider Psychiatry & Neurology Psychiatry
DX: O99.342 Other mental disorders complicating pregnancy, second trimester (principal); F31.81 Bipolar II disorder; F43.10 Post-traumatic stress disorder, unspecified; Z79.899 Other long term (current) drug therapy; Z3A.00 Weeks of gestation of pregnancy not specified
CPT/HCPCS: 90791; 90853